=== PATIENT | male | born 1965 | race Caucasian/White ===

== ENCOUNTER 2017-01-21 21:19 | Emergency (ER) | payer SELFPAY ==
[~2017-01-21] VITALS: Ht 175.2 cm; Wt 68.0 kg
[2017-01-21] MEDS ORDERED: VIBRAMYCIN100 MG PO (21:44)
[2017-01-21] MEDS ORDERED: ZOFRAN ODT4 MG SL (21:44)
[2017-01-23 13:04] LABS: LYME AB/TOTAL IMMUNOGLOBULINS <0.91 ISR (0.00-0.90)
== END 2017-01-21 22:09 | disposition home or self-care (01) ==
LOC: ED 21:19
PROVIDERS: Physician Assistant
DX: R21 Rash and other nonspecific skin eruption (principal); F17.200 Nicotine dependence, unspecified, uncomplicated

== ENCOUNTER 2017-06-29 13:54 | Emergency (ER) | payer SELFPAY ==
[~2017-06-29] VITALS: Ht 175.2 cm; Wt 72.6 kg
[~2017-06-29 13:54] MED LIST: VIBRAMYCIN100 MG PO; ZOFRAN ODT4 MG SL
[2017-06-29] MEDS ORDERED: NORCO 5-325 TA1 EACH PO (16:40)
== END 2017-06-29 16:44 | disposition home or self-care (01) ==
LOC: ED 13:54
DX: S62.306A Unspecified fracture of fifth metacarpal bone, right hand, initial encounter for closed fracture (principal); F17.200 Nicotine dependence, unspecified, uncomplicated; W23.0XXA Caught, crushed, jammed, or pinched between moving objects, initial encounter; Y93.89 Activity, other specified; Y92.89 Other specified places as the place of occurrence of the external cause; Y99.8 Other external cause status

== ENCOUNTER → 2017-07-29 | Outpatient (CLI) | payer SELFPAY ==
[~2017-07-29] MED LIST changes: +NORCO 5-325 TA1 EACH PO
== END | disposition home or self-care (01) ==
LOC: ORTHO 01:16
DX: S62.356D Nondisplaced fracture of shaft of fifth metacarpal bone, right hand, subsequent encounter for fracture with routine healing (principal); X58.XXXD Exposure to other specified factors, subsequent encounter

== ENCOUNTER → 2017-08-25 | Outpatient (CLI) | payer SELFPAY | END | disposition home or self-care (01) | LOC: ORTHO 01:23 | DX: S62.356D Nondisplaced fracture of shaft of fifth metacarpal bone, right hand, subsequent encounter for fracture with routine healing (principal); X58.XXXD Exposure to other specified factors, subsequent encounter ==